=== PATIENT | female | born 1955 | race Two or more races ===

== ENCOUNTER 2022-07-28 14:06 | Emergency (ER) | payer OTHER ==
[~2022-07-28] VITALS: Ht 152.4 cm; Wt 61.2 kg
== END 2022-07-28 22:51 | disposition home or self-care (01) ==
LOC: ER 14:06
DX: K56.609 Unspecified intestinal obstruction, unspecified as to partial versus complete obstruction (principal); Z85.038 Personal history of other malignant neoplasm of large intestine; Z93.3 Colostomy status; J45.909 Unspecified asthma, uncomplicated; Z88.0 Allergy status to penicillin; Z88.2 Allergy status to sulfonamides; Z20.822 Contact with and (suspected) exposure to COVID-19